=== PATIENT | female | born 1945 | race Caucasian/White ===

== ENCOUNTER 2016-10-26 16:17 | Emergency (ER) | payer MEDICARE, MEDICAID ==
[2016-10-26 16:36] VITALS: BP 168/86
--- NOTE | 2016-10-26 16:52 | EDM.PDOC ---
ED HPI GENERAL MEDICAL PROBLEM - General Chief Complaint: Neurological Problem Stated Complaint: FALL YESTERDAY Time Seen by Provider: 10/26/16 16:34 Source of Information: Reports: Patient History Limitations: Reports: No Limitations - History of Present Illness INITIAL COMMENTS - FREE TEXT/NARRATIVE: SISTER STATES THAT PT IS BECOMING MORE FORGETFUL AND MAY HAVE FALLEN YESTERDAY. BILAT FEET ARE SWOLLEN AND DISCOLORED BUT PT DOESN'T THINK SHE INJURED THEM. MAY HAVE FELL OUT OF CHAIR AND LANDED ON KNEES BUT UNSURE. DENIES CP, SOB, N/V/D , BULLARD, DIZZINESS, RECENT CHANGE IN MEDICATION, OR BLURRY VISION. ACCORDING TO SISTER, SYMPTOMS ARE OF CHRONIC NATURE AND NOT ACUTE. Onset: Gradual Duration: Chronic, Getting Worse Improves with: Reports: None Worsens with: Reports: None Associated Symptoms: Reports: Confusion - Related Data Allergies Allergy/AdvReac Type Severity Reaction Status Date / Time No Known Drug Allergies Allergy NKDA Verified 03/22/15 08:36 Home Meds: Home Meds ALPRAZolam [Xanax] 0.25 mg PO Q8H PRN 11/29/14 [History] Aspirin 325 mg PO DAILY 11/29/14 [History] Calcium Carbonate 600 mg PO DAILY 11/29/14 [History] Cholecalciferol (Vitamin D3) [Vitamin D] 2,000 unit PO DAILY 11/29/14 [History] Ibuprofen [Motrin] 600 mg PO Q8H PRN 11/29/14 [History] Letrozole [Femara] 2.5 mg PO DAILY 11/29/14 [History] Lisinopril 5 mg PO DAILY 11/29/14 [History] Omeprazole [priLOSEC OTC] 20 mg PO DAILY 11/29/14 [History] Potassium Chloride [Klor-Con M20] 1 tab PO DAILY 11/29/14 [History] Simvastatin [Zocor] 40 mg PO BEDTIME 11/29/14 [History] cloNIDine [Catapres] 0.2 mg PO DAILY 11/29/14 [History] Docusate Sodium [Colace] 100 mg PO DAILY 10/26/16 [History] Levothyroxine 125 mcg PO DAILY 10/26/16 [History] Past Medical History Other Genitourinary History: Small lesions to bladder - Past Surgical History Other Oncologic Surgeries/Procedures: Lymphnode removal 2006 Social & Family History - Tobacco Use Smoking Status *Q: Never Smoker - Caffeine Use Caffeine Use: Reports: Coffee, Soda Other Caffeine Use: diet - Recreational Drug Use Recreational Drug Use: No ED ROS GENERAL - Review of Systems Review Of Systems: ROS reveals no pertinent complaints other than HPI. Constitutional: Reports: No Symptoms HEENT: Reports: No Symptoms Respiratory: Reports: No Symptoms Cardiovascular: Reports: No Symptoms Endocrine: Reports: No Symptoms GI/Abdominal: Reports: No Symptoms : Reports: No Symptoms Musculoskeletal: Reports: No Symptoms Skin: Reports: No Symptoms Neurological: Reports: Confusion. Denies: Dizziness, Headache, Difficulty Walking, Change in Speech Psychiatric: Reports: No Symptoms Hematologic/Lymphatic: Reports: No Symptoms Immunologic: Reports: No Symptoms ED EXAM, GENERAL - Physical Exam Exam: See Below Exam Limited By: No Limitations General Appearance: Alert, WD/WN, No Apparent Distress Eye Exam: Bilateral Eye: Normal Inspection Nose: Normal Inspection, Normal Mucosa, No Blood Throat/Mouth: Normal Inspection, Normal Oropharynx, No Airway Compromise Head: Atraumatic, Normocephalic Neck: Normal Inspection, Supple, Non-Tender, Full Range of Motion Respiratory/Chest: No Respiratory Distress, Lungs Clear, Normal Breath Sounds, No Accessory Muscle Use, Chest Non-Tender Cardiovascular: Normal Peripheral Pulses, Regular Rate, Rhythm, No Murmur GI/Abdominal: Normal Bowel Sounds, Soft, Non-Tender, No Organomegaly, No Distention, No Abnormal Bruit, No Mass Back Exam: Normal Inspection. No: CVA Tenderness (L), CVA Tenderness (R) Extremities: Pedal Edema (BILAT) Neurological: Alert, Oriented, CN II-XII Intact, Normal Cognition, No Motor/ Sensory Deficits Psychiatric: Normal Affect, Normal Mood Skin Exam: Warm, Dry, Intact, Normal Color, No Rash Lymphatic: No Adenopathy Course - Vital Signs Last Recorded V/S: Last Vital Signs Temp 98.1 F 10/26/16 16:33 Pulse 95 10/26/16 16:33 Resp 18 10/26/16 16:33 BP 168/86 H 10/26/16 16:33 Pulse Ox 90 L 10/26/16 16:33 - Orders/Labs/Meds Orders: Active Orders 24 hr Category Date Time Status CBC WITH AUTO DIFF [HEME] Stat Lab 10/26/16 16:35 Ordered COMPREHENSIVE METABOLIC PN,CMP [CHEM] Stat Lab 10/26/16 16:35 Ordered Labs: Laboratory Tests 10/26/16 Range/Units 16:25 Specimen Type Urincc Urine Color Yellow (YELLOW) Urine Appearance Clear (CLEAR) Urine pH 5.5 (5.0-9.0) Ur Specific [place] 1.015 (1.005-1.030) Urine Protein 30 H (NEGATIVE) mg/dL Urine Glucose (UA) Negative (NEGATIVE) mg/dL Urine Ketones Negative (NEGATIVE) mg/dL Urine Occult Blood Small H (NEGATIVE) Urine Nitrite Negative (NEGATIVE) Urine Bilirubin Negative (NEGATIVE) Urine Urobilinogen 0.2 (0.2-1.0) E.U./dL Ur Leukocyte Esterase Negative (NEGATIVE) Urine RBC Not seen /HPF Urine WBC 0-5 /HPF Ur Epithelial Cells Occasional /LPF Urine Bacteria Rare (NONE TO FEW) /HPF - Re-Assessments/Exams Free Text/Narrative Re-Assessment/Exam: 10/26/16 17:29 PT AFEBRILE, NONTOXIC APPEARING, VSS. DISCUSSED WITH PT AND SISTER CONCERN FOR RENAL FUNCTION. WILL F/U WITH [facility] FOR NEPHROLOGY REFERRAL. Departure - Departure Time of Disposition: 17:30 Disposition: Home, Self-Care 01 Condition: Fair Clinical Impression: Renal insufficiency - Discharge Information Instructions: Chronic Kidney Disease, [id number], Blood Urea Nitrogen Test Forms: ED Department Discharge Additional Instructions: FOLLOW UP AT [facility] IN 2 DAYS. RETURN TO ER SOONER IF SYMPTOMS CONTINUE - My Orders Last 24 Hours: My Active Orders 10/26/16 16:35 CBC WITH AUTO DIFF [HEME] Stat COMPREHENSIVE METABOLIC PN,CMP [CHEM] Stat - Assessment/Plan Last 24 Hours: My Active Orders 10/26/16 16:35 CBC WITH AUTO DIFF [HEME] Stat COMPREHENSIVE METABOLIC PN,CMP [CHEM] Stat Assessment:: RENAL INSUFFICIENCY Plan: F/U AT [facility] IN 2 DAYS
== END 2016-10-26 17:45 | disposition home or self-care (01) ==
LOC: KA.ED 16:17
DX: N28.9 Disorder of kidney and ureter, unspecified (principal); Z79.82 Long term (current) use of aspirin; Z79.899 Other long term (current) drug therapy
CPT/HCPCS: 36415; 80053; 81001; 85025; 99282; 99284

== ENCOUNTER 2016-10-28 09:55 | Observation (INO) | payer MEDICARE, MEDICAID ==
--- NOTE | 2016-10-28 10:48 | EDM.PDOC ---
ED HPI GENERAL MEDICAL PROBLEM - General Chief Complaint: Abdominal Pain Stated Complaint: WEAKNESS Time Seen by Provider: 10/28/16 10:31 Source of Information: Reports: Patient, Family (SISTER) History Limitations: Reports: No Limitations - History of Present Illness INITIAL COMMENTS - FREE TEXT/NARRATIVE: PT SEEN HERE ON FRIDAY FOR C/O WEAKNESS. WAS TO F/U AT CLINIC BUT CLINIC TOLD HER TO GO BACK TO ER. FOUND TO HAVE RENAL INSUFFICIENCY ON SAT. STATES SHE SLIPPED AND FELL ON WET FLOOR THIS AM BUT NO SIGNS OF TRAUMA OR PAIN. SISTER STATES SHE HAS BEEN FALLING A LOT AND PT LIVES ALONE. DENIES SYNCOPY, HEAD INJURY, FEVER, OR VISION CHANGES. NOT HAVING ABD PAIN WITH PRESENTATION TO ER. Onset: Gradual Duration: Other (UNSURE) Location: Reports: Other (NO PAIN OR SIGNS OF TRAUMA) Improves with: Reports: None Worsens with: Reports: None Associated Symptoms: Reports: No Other Symptoms - Related Data Allergies Allergy/AdvReac Type Severity Reaction Status Date / Time No Known Drug Allergies Allergy Unknown NKDA Verified 10/28/16 10:36 Home Meds: Home Meds ALPRAZolam [Xanax] 0.25 mg PO Q8H PRN 11/29/14 [History] Aspirin 325 mg PO DAILY 11/29/14 [History] Cholecalciferol (Vitamin D3) [Vitamin D] 2,000 unit PO DAILY 11/29/14 [History] Letrozole [Femara] 2.5 mg PO DAILY 11/29/14 [History] Lisinopril 5 mg PO DAILY 11/29/14 [History] Omeprazole [priLOSEC OTC] 20 mg PO DAILY 11/29/14 [History] Potassium Chloride [Klor-Con M20] 1 tab PO DAILY 11/29/14 [History] Simvastatin [Zocor] 40 mg PO BEDTIME 11/29/14 [History] cloNIDine [Catapres] 0.2 mg PO DAILY 11/29/14 [History] Docusate Sodium [Colace] 100 mg PO DAILY 10/26/16 [History] Levothyroxine 125 mcg PO DAILY 10/26/16 [History] Calcium Carb & Citrate/Vit D3 [Calcium + D3 ER Tablet] 1 tab PO DAILY 10/28/16 [ History] Ibuprofen 1 tab PO TID 10/28/16 [History] Past Medical History HEENT History: Reports: Impaired Vision Cardiovascular History: Reports: High Cholesterol, Hypertension Gastrointestinal History: Reports: Chronic Constipation, GERD, Hemorrhoids Other Genitourinary History: Small lesions to bladder Psychiatric History: Reports: Anxiety Endocrine/Metabolic History: Reports: Hypothyroidism, Obesity/BMI 30+, Vitamin D Deficiency Oncologic (Cancer) History: Reports: Breast - Past Surgical History Other Oncologic Surgeries/Procedures: Lymphnode removal 2006 Social & Family History - Tobacco Use Smoking Status *Q: Never Smoker - Caffeine Use Caffeine Use: Reports: Coffee, Soda Other Caffeine Use: diet - Recreational Drug Use Recreational Drug Use: No ED ROS GENERAL - Review of Systems Review Of Systems: ROS reveals no pertinent complaints other than HPI. Constitutional: Reports: Weakness HEENT: Reports: No Symptoms Respiratory: Reports: No Symptoms Cardiovascular: Reports: No Symptoms Endocrine: Reports: No Symptoms GI/Abdominal: Reports: No Symptoms : Reports: No Symptoms Musculoskeletal: Reports: No Symptoms Skin: Reports: No Symptoms Neurological: Reports: No Symptoms. Denies: Dizziness, Headache, Numbness, Trouble Speaking Psychiatric: Reports: No Symptoms Hematologic/Lymphatic: Reports: No Symptoms Immunologic: Reports: No Symptoms ED EXAM, GENERAL - Physical Exam Exam: See Below Exam Limited By: No Limitations General Appearance: Alert, WD/WN, No Apparent Distress Eye Exam: Bilateral Eye: Normal Inspection Nose: Normal Inspection, Normal Mucosa, No Blood Throat/Mouth: Normal Inspection, Normal Oropharynx, No Airway Compromise Head: Atraumatic, Normocephalic Neck: Normal Inspection, Supple, Non-Tender, Full Range of Motion Respiratory/Chest: No Respiratory Distress, Lungs Clear, Normal Breath Sounds, No Accessory Muscle Use, Chest Non-Tender Cardiovascular: Normal Peripheral Pulses, Regular Rate, Rhythm, No Murmur GI/Abdominal: Normal Bowel Sounds, Soft, Non-Tender, No Organomegaly, No Distention, No Abnormal Bruit, No Mass Back Exam: Normal Inspection. No: CVA Tenderness (L), CVA Tenderness (R) Extremities: Pedal Edema (BILAT) Neurological: Alert, Oriented, CN II-XII Intact, Normal Cognition Psychiatric: Normal Affect, Normal Mood Skin Exam: Warm, Dry, Intact, Normal Color, No Rash Lymphatic: No Adenopathy Course - Vital Signs Last Recorded V/S: Last Vital Signs Temp 97.9 F 10/28/16 10:33 Pulse 78 10/28/16 10:33 Resp 16 10/28/16 10:33 BP 169/68 H 10/28/16 10:33 Pulse Ox 90 L 10/28/16 10:33 - Orders/Labs/Meds Orders: Active Orders 24 hr Category Date Time Status Chest 2V [CR] Stat Exams 10/28/16 10:40 Ordered CBC WITH AUTO DIFF [HEME] Stat Lab 10/28/16 10:39 Ordered COMPREHENSIVE METABOLIC PN,CMP [CHEM] Stat Lab 10/28/16 10:39 Ordered UA W/MICROSCOPIC [URIN] Stat Lab 10/28/16 10:39 Uncollected - Radiology Interpretation Free Text/Narrative:: CXR SHOWS CARDIOMEGALY WITH MILD PULM CONGESTION AND SUSPICIOUS FOR LEFT LUNG OPACITY - Re-Assessments/Exams Free Text/Narrative Re-Assessment/Exam: 10/28/16 12:13 PT AFEBRILE, NONTOXIC APPEARING, VSS. DISCUSSED CASE WITH KARAN MOON AT [facility] AND WILL ACCEPT ADMIT TO OBS. Departure - Departure Time of Disposition: 12:14 Disposition: Refer to Observation Condition: Fair Clinical Impression: UTI, Urinary tract infectious disease, Renal insufficiency - Discharge Information Forms: ED Department Discharge - My Orders Last 24 Hours: My Active Orders 10/28/16 10:39 CBC WITH AUTO DIFF [HEME] Stat COMPREHENSIVE METABOLIC PN,CMP [CHEM] Stat UA W/MICROSCOPIC [URIN] Stat 10/28/16 10:40 Chest 2V [CR] Stat - Assessment/Plan Last 24 Hours: My Active Orders 10/28/16 10:39 CBC WITH AUTO DIFF [HEME] Stat COMPREHENSIVE METABOLIC PN,CMP [CHEM] Stat UA W/MICROSCOPIC [URIN] Stat 10/28/16 10:40 Chest 2V [CR] Stat Assessment:: RENAL INSUFFICIENCY Plan: ADMIT TO OBS
[2016-10-28 11:43] LABS: CHLORIDE,CL 104 mmol/L (98-115); SODIUM,NA 139 mmol/L (136-145)
[2016-10-28] MEDS ORDERED: cefTRIAXone 1 GM Vial IVPUSH ONE (11:54)
[2016-10-28] MEDS: Sodium Chloride 0.9% 5 ML Syringe FLUSH PRN ×2 (12:06→13:59)
[2016-10-28] MEDS ORDERED: ALPRAZolam 0.25 MG Tab PO PRN (13:17)
[2016-10-28] MEDS ORDERED: Sodium Chloride 0.9% 1,000 ML IV SCH (13:30)
[2016-10-28] MEDS ORDERED: Magnesium Hydroxide 400 MG/5 ML Susp 30 ML Cup PO PRN (15:24)
[2016-10-28] MEDS ORDERED: Losartan 25 MG Tab PO SCH (16:45)
--- NOTE | 2016-10-28 16:48 | PCM.HP ---
H&P History of Present Illness - General Date of Service: 10/28/16 Admit Problem/Dx: Admission Diagnosis/Problem Admission Diagnosis/Problem Renal insufficiency Source of Information: Patient, Old Records, Provider, RN History Limitations: Reports: No Limitations - History of Present Illness Initial Comments - Free Text/Narative: This is a 71 year old female who presented the emergency room after sustaining a fall at home. The patient states she slipped and fell on a wet floor this morning. She states she did bump her head, but denies a cut or bruising. The patient states she has been falling more frequently. She does live alone and walk with a cane. Patient had been seen in the ER on Friday for similar episode and was found to have renal insufficiency, however it was unsure if this was new or chronic. The patient's ER workup revealed a UTI and elevated white blood cell count. She was given Rocephin 1 gm IV. The patient's kidney function is poor and her LFTs are elevated, which is a new finding. The patient has a history of slowed mentation, hypertension, left breast carcinoma, bladder carcinoma, and hypothyroidism. - Related Data Allergies/Adverse Reactions: Allergies Allergy/AdvReac Type Severity Reaction Status Date / Time No Known Drug Allergies Allergy Unknown NKDA Verified 10/28/16 13:46 Home Medications: Home Meds ALPRAZolam [Xanax] 0.25 mg PO Q8H PRN 11/29/14 [History] Cholecalciferol (Vitamin D3) [Vitamin D] 2,000 unit PO DAILY 11/29/14 [History] Letrozole [Femara] 2.5 mg PO DAILY 11/29/14 [History] Lisinopril 5 mg PO DAILY 11/29/14 [History] Omeprazole [priLOSEC OTC] 20 mg PO ACBREAKFAST 11/29/14 [History] Potassium Chloride [Klor-Con M20] 1 tab PO DAILY 11/29/14 [History] Simvastatin [Zocor] 40 mg PO DAILY 11/29/14 [History] cloNIDine [Catapres] 0.2 mg PO DAILY 11/29/14 [History] Docusate Sodium [Colace] 100 mg PO DAILY 10/26/16 [History] Levothyroxine 125 mcg PO DAILY 10/26/16 [History] Aspirin/Calcium Carbonate/Mag [Aspirin Buffered 325 mg Tab] 325 mg PO DAILY [History] Calcium Carbonate/Vitamin D3 [Calcium 600-Vit D3 800 Tab] 1 tab PO DAILY [History] Ibuprofen [Motrin] 600 mg PO Q8H PRN 10/28/16 [History] Past Medical History HEENT History: Reports: Impaired Vision Cardiovascular History: Reports: High Cholesterol, Hypertension Gastrointestinal History: Reports: Chronic Constipation, GERD, Hemorrhoids Genitourinary History: Reports: Other (See Below) Other Genitourinary History: Small lesions to bladder Psychiatric History: Reports: Anxiety Endocrine/Metabolic History: Reports: Hypothyroidism, Obesity/BMI 30+, Vitamin D Deficiency Oncologic (Cancer) History: Reports: Breast - Past Surgical History Head Surgeries/Procedures: Reports: None Other Oncologic Surgeries/Procedures: Lymphnode removal 2006 Dermatological Surgical History: Reports: None Social & Family History - Tobacco Use Smoking Status *Q: Never Smoker Second Hand Smoke Exposure: No - Caffeine Use Caffeine Use: Reports: Coffee, Soda Other Caffeine Use: diet - Recreational Drug Use Recreational Drug Use: No H&P Review of Systems - Review of Systems: Review Of Systems: See Below General: Reports: Weakness, Other (Frequent falls). Denies: Fever, Chills, Decreased Appetite HEENT: Reports: Glasses. Denies: Ear Pain, Headaches, Sore Throat, Vertigo, Visual Changes Pulmonary: Denies: Shortness of Breath, Cough Cardiovascular: Denies: Chest Pain, Edema Gastrointestinal: Denies: Abdominal Pain, Decreased Appetite Genitourinary: Reports: Dysuria, Frequency. Denies: Urgency Neurological: Denies: Headache Exam - Exam Exam: See Below - Vital Signs Vital Signs: Last Vital Signs Temp 96.8 F 10/28/16 15:00 Pulse 75 10/28/16 15:00 Resp 16 10/28/16 15:00 BP 155/71 H 10/28/16 15:00 Pulse Ox 95 10/28/16 15:00 Weight: 224 lb 9.6 oz - Exam Quality Assessment: Supplemental Oxygen (2 liters per nasal cannula), DVT Prophylaxis (Lovenox). No: Urinary Catheter General: Alert, Oriented, Cooperative HEENT: Conjunctiva Clear, EOMI, Hearing Intact, Posterior Pharynx Clear, Pupils Equal, Pupils Reactive, TMs Clear, Other (atraumatic head). No: Mucosa Moist & Ages (dry and pale) Neck: Supple, Trachea Midline. No: Lymphadenopathy Lungs: Clear to Auscultation (upper lobes), Normal Respiratory Effort, Decreased Breath Sounds (bilateral lower lobes). No: Rales, Rhonchi, Wheezing Cardiovascular: Regular Rate, Regular Rhythm, Normal S1, Normal S2 Abdomen: Normal Bowel Sounds, Soft (large and round). No: Distention, Tenderness Extremities: Edema (trace-1+ edema to BLE) Skin: Warm, Dry, Intact Neurological: Cranial Nerves Intact, Normal Speech Neuro Extensive - Mental Status: Alert, Oriented x3, Normal Mood/Affect, Memory Intact Psychiatric: Alert, Normal Affect, Normal Mood - Patient Data Result Diagrams: 10/28/16 10:50 10/28/16 10:50 *Q Meaningful Use (ADM) - VTE *Q VTE Criteria *Q: - Stroke *Q Stroke Criteria *Q: - AMI *Q AMI Criteria *Q: Problem List Initiated/Reviewed/Updated: Yes Orders Last 24hrs: Active Orders 24 hr Category Date Time Status Telemetry Monitoring [Cardiac Monitoring] [RC] . Care 10/28/16 16:41 Ordered DIRECTED Up With Assistance [RC] .PRN Care 10/28/16 13:16 Active Consult to Physical Therapy [PT Evaluation and Cons 10/28/16 16:41 Ordered Treatment] [CONS] Routine Consult to Interventional Physician [CONS] Routine Cons 10/28/16 16:41 Ordered Soft Diet [DIET] Diet 10/28/16 Dinner Active B-TYPE NATRIURETIC PEPTIDE,BNP [CHEM] Routine Lab 10/28/16 16:42 Ordered BMP [BASIC METABOLIC PANEL,BMP] [CHEM] AM Lab 10/29/16 05:11 Ordered CBC WITH AUTO DIFF [HEME] AM Lab 10/29/16 05:11 Ordered TSH ULTRASENSITIVE [CHEM] Routine Lab 10/28/16 16:42 Ordered ALPRAZolam [Xanax] Med 10/28/16 13:17 Active 0.25 mg PO Q8H PRN Aspirin [Ecotrin] Med 10/29/16 09:00 Active 325 mg PO DAILY Calcium Citrate/Vitamin D3 [Calcium Citrate + D] Med 10/29/16 09:00 Active 2 tab PO DAILY Cholecalciferol (Vitamin D3) [Vitamin D3] Med 10/29/16 09:00 Active 2,000 units PO DAILY Docusate Sodium [Colace] Med 10/29/16 09:00 Active 100 mg PO DAILY Levothyroxine Med 10/29/16 07:00 Active 25 mcg PO ACBREAKFAST Levothyroxine [Synthroid] Med 10/29/16 07:00 Active 100 mcg PO ACBREAKFAST Losartan [Cozaar] Med 10/28/16 16:45 Ordered 25 mg PO DAILY Magnesium Hydroxide [Milk of Magnesia] Med 10/28/16 15:24 Active 30 ml PO DAILY PRN Omeprazole Med 10/29/16 07:00 Active 20 mg PO ACBREAKFAST Potassium Chloride [Klor-Con M20] Med 10/29/16 09:00 Active 20 meq PO DAILY Simvastatin [Zocor] Med 10/29/16 09:00 Active 40 mg PO DAILY Sodium Chloride 0.9% [Normal Saline] 1,000 ml Med 10/28/16 13:30 Active IV ASDIRECTED cefTRIAXone [Rocephin] Med 10/29/16 12:00 Active 1 gm IVPUSH Q24H cloNIDine [Catapres] Med 10/29/16 09:00 Active 0.2 mg PO DAILY Medication Orders Alprazolam (Xanax) 0.25 mg PO Q8H PRN PRN Reason: Anxiety Aspirin (Ecotrin) 325 mg PO DAILY [facility] Calcium Citrate (Calcium Citrate + D) 2 tab PO DAILY [facility] Ceftriaxone Sodium (Rocephin) 1 gm IVPUSH Q24H [facility] Cholecalciferol (Vitamin D3) 2,000 units PO DAILY [facility] Clonidine HCl (Catapres) 0.2 mg PO DAILY [facility] Docusate Sodium (Colace) 100 mg PO DAILY [facility] Sodium Chloride (Normal Saline) 1,000 mls @ 75 mls/hr IV ASDIRECTED [facility] Last Admin: 10/28/16 13:57 Dose: 75 mls/hr Levothyroxine Sodium (Synthroid) 100 mcg PO ACBREAKFAST [facility] Levothyroxine Sodium (Levothyroxine) 25 mcg PO ACBREAKFAST [facility] Losartan Potassium (Cozaar) 25 mg PO DAILY [facility] Magnesium Hydroxide (Milk Of Magnesia) 30 ml PO DAILY PRN PRN Reason: Constipation Omeprazole (Omeprazole) 20 mg PO ACBREAKFAST [facility] Potassium Chloride (Klor-Con M20) 20 meq PO DAILY [facility] Simvastatin (Zocor) 40 mg PO DAILY [facility] Sodium Chloride (Syrex Flush) 5 ml FLUSH Q8HR PRN PRN Reason: Keep Vein Open Last Admin: 10/28/16 13:59 Dose: 5 ml Admin: 10/28/16 12:06 Dose: 5 ml Assessment/Plan Comment:: PRIMARY ASSESSMENT/PLAN: Acute kidney injury: BUN 39, creatinine 2.44, GFR 20. Upon review of [facility] records from May 2016-BUN 17, creatinine 0.77, and GFR 69. Discontinue ibuprofen, lisinopril, and femara. NS @ 75 mL/ hr. Repeat BMP in AM. Elevated LFTs: Alk phos 230, ALT 114, AST 244. Upon review of past records from May- Alk phos 81, ALT 22, AST 25. Will need further workup with CT, however not able to at this time due to renal insufficiency. UTI: WBC 10.7 with left shift. UA revealed small blood, small leukocytes, and few bacteria. Urine culture pending. Continue Rocephin 1 gm IV daily until culture returns. Repeat CBC in AM. Frequent falls, question relation to orthostatic hypotension versus dehydration : See orthostatic blood pressures in chart-significant drop noted from laying to standing. Referral to PT for evaluation. Referral to social worker aide as patient lives alone. Will place on telemetry overnight to monitor for any arrhythmias. Hypertension: Discontinue lisinopril. Switch to losartan 25 mg po daily. Continue clonidine. Cardiomegaly with mild pulmonary vascular congestion. Chest x-ray revealed "Cardiomegaly with mild pulmonary vascular congestion and possible left midlung opacity. CT examination of the chest is recommended for further evaluation." BNP pending. Consider further CT evaluation when renal indices improve. No ECHO on file. Right clavical abnormality on CT. "Abnormal appearance of the right clavicle, as described above. This will also be evaluated with CT examination of the chest. Additionally, radiographic bone survey would be of benefit to evaluate the remainder of the osseous structures." Concern for metastatic disease with history of cancer. Hypercalcemia. Calcium elevated at 12.8. Hold calcium supplements. SECONDARY ASSESSMENT/PLAN: Hypothyroidism. TSH pending. Continue levothyroxine. GERD. Continue omeprazole. Hyperlipidemia. Continue zocor. Obesity. Slowed mentation. Constipation. Continue colace. History of left breast carcinoma, status post chemotherapy & radiation in 2006. Holding femara due to renal side effect profile. History of bladder carcinoma, status post bladder lesion removal. DVT prophylaxis. Score of 9. Lovenox initiated. Overall plan: Continue to monitor for any signs of pain or abdominal discomfort. Gentle fluid replacement. Repeat labs in AM. Addendum: This note is to serve as an admission H&P and discharge summary. Call received from nursing staff around 1830 that patient had a controlled fall on the way to the bathroom. Deformity noted of left foot and ankle. Xray obtained and reviewed per self. Closed distal tibial fracture with dislocation noted. Call placed to [facility] orthopedist, Dr. Madrigal, who reviewed the x-rays. He advised patient be transported to [facility] ER for sedation and reduction. The patient was transferred via ALS ambulance to [facility]. IVFs were continued en route and morphine 2 mg IV every 2 hours PRN for pain was ordered. Family updated of plan per nursing and agreed.
[2016-10-28] MEDS ORDERED: Enoxaparin 30 MG/0.3 ML Syringe SUBCUT SCH (17:00)
[2016-10-28] MEDS ORDERED: Enoxaparin 40 MG/0.4 ML Syringe SUBCUT SCH (17:00)
[2016-10-28 19:11] VITALS: BP 156/78
[2016-10-28] MEDS ORDERED: Morphine 2 MG/ML Syringe ONE (19:18)
[2016-10-28] MEDS ORDERED: Morphine 2 MG/ML Syringe IVPUSH PRN (19:28)
[2016-10-29] MEDS ORDERED: Levothyroxine 25 MCG Tab PO SCH (07:00)
[2016-10-29] MEDS ORDERED: Omeprazole 20 MG Cap.CR PO SCH (07:00)
[2016-10-29] MEDS ORDERED: Levothyroxine 100 MCG Tab PO SCH (07:00)
[2016-10-29] MEDS ORDERED: Docusate Sodium 100 MG Cap PO SCH (09:00)
[2016-10-29] MEDS ORDERED: Simvastatin 20 MG Tab PO SCH (09:00)
[2016-10-29] MEDS ORDERED: Potassium Chloride 20 MEQ Tab.ER PO SCH (09:00)
[2016-10-29] MEDS ORDERED: Aspirin 325 MG Tab.EC PO SCH (09:00)
[2016-10-29] MEDS ORDERED: Cholecalciferol (Vitamin D3) 1,000 Unit Tab PO SCH (09:00)
[2016-10-29] MEDS ORDERED: Calcium Citrate/Vitamin D3 315 MG-250 Unit Tab PO SCH (09:00)
[2016-10-29] MEDS ORDERED: cloNIDine 0.1 MG Tab PO SCH (09:00)
[2016-10-29] MEDS ORDERED: cefTRIAXone 1 GM Vial IVPUSH SCH (12:00)
== END 2016-10-28 19:50 ==
LOC: KA.ED 09:55 → KA.MS 12:15
PROVIDERS: ADMIT Physician Assistant Surgical; ATTEND Nurse Practitioner Family
DX: N17.9 Acute kidney failure, unspecified (principal); N39.0 Urinary tract infection, site not specified; R79.89 Other specified abnormal findings of blood chemistry; R29.6 Repeated falls; I10 Essential (primary) hypertension; I51.7 Cardiomegaly; R09.89 Other specified symptoms and signs involving the circulatory and respiratory systems; E83.52 Hypercalcemia; K21.9 Gastro-esophageal reflux disease without esophagitis; E55.9 Vitamin D deficiency, unspecified; E03.9 Hypothyroidism, unspecified; F41.9 Anxiety disorder, unspecified; E78.5 Hyperlipidemia, unspecified; E66.9 Obesity, unspecified; Z79.82 Long term (current) use of aspirin; Z79.899 Other long term (current) drug therapy; Z98.890 Other specified postprocedural states
CPT/HCPCS: 36415; 71020; 73610; 80053; 81001; 83880; 84443; 85025; 87086; 96372; 96374; 99285; A9270; G0378; J0696; J1650; J2270; J7030